=== PATIENT | female | born 1950 | race Caucasian/White ===

== ENCOUNTER 2025-01-28 10:28 | Inpatient (IN) | payer MEDICARE, MEDICAID ==
[~2025-01-28] VITALS: Ht 165.1 cm; Wt 63.0 kg
[2025-01-28] MEDS ORDERED: AIRSUPRA 90-810.7 GM INH (14:13)
[2025-01-28] MEDS ORDERED: ATORVASTATIN CA40 M1 PO (14:15)
[2025-01-28] MEDS ORDERED: BIOTENE DRY M1000 ML PO (14:17)
[2025-01-28] MEDS ORDERED: BRIMONIDINE TAR15 ML OPH (14:18)
[2025-01-28] MEDS ORDERED: LIBRIUM5 MG PO (14:19)
[2025-01-28] MEDS ORDERED: CLOPIDOGREL75 MG PO (14:20)
[2025-01-28] MEDS ORDERED: 24 HOUR ALLERG9.9 ML NAS (14:23)
[2025-01-28] MEDS ORDERED: NEURONTIN300 MG PO (14:24)
[2025-01-28] MEDS ORDERED: VISTARIL25 MG PO (14:25)
[2025-01-28] MEDS ORDERED: Ipratropium Brom3 ML INH (14:26)
[2025-01-28] MEDS ORDERED: LAMOTRIGINE ER100 MG PO (14:27)
[2025-01-28] MEDS ORDERED: LASIX40 MG PO (14:29)
[2025-01-28] MEDS ORDERED: LOSARTAN POTASS25 M1 PO (14:29)
[2025-01-28] MEDS ORDERED: METFORMIN HYDR500 MG PO (14:33)
[2025-01-28] MEDS ORDERED: NICODERM CQ1 EAC2 TD (14:35)
[2025-01-28] MEDS ORDERED: PERCOCET 5-3251 EACH PO (14:36)
[2025-01-28] MEDS ORDERED: PREPARATION H26 GM T (14:37)
[2025-01-28] MEDS ORDERED: TRAZODONE100 MG PO (14:38)
[2025-01-28] MEDS ORDERED: VENLAFAXINE225 MG PO (14:39)
[2025-01-28] MEDS ORDERED: ONDANSETRON HYDR4 MG PO (14:41)
[2025-01-28] MEDS ORDERED: MG-AL HYDROXIDE/SIMETICONE 30 ML UDC PO PRN (15:40)
[2025-01-28] MEDS ORDERED: Magnesium Hydroxide 30 ML UDC PO PRN (15:40)
[2025-01-28] MEDS ORDERED: ACETAMINOPHEN 325 MG TAB PO PRN (15:40)
[2025-01-28] MEDS ORDERED: Menthol/Zinc Oxide 4 GM THIN T PRN (15:50)
[2025-01-28 16:33] VITALS: BP 127/61
[2025-01-28] MEDS ORDERED: BUDESONIDE INH PRN (17:45)
[2025-01-28] MEDS ORDERED: ALBUTEROL INH PRN (17:45)
[2025-01-28] MEDS ORDERED: Albuterol Sulf/Ipratropium 3 ML VIAL NEB PRN (17:45)
[2025-01-28] MEDS ORDERED: BUDESONIDE 0.5 MG AMP NEB SCH (17:55)
[2025-01-28 20:00] VITALS: BP 113/61
[2025-01-28] MEDS ORDERED: ATORVASTATIN CALCIUM 40 MG TABLET PO SCH (21:00)
[2025-01-28] MEDS ORDERED: clonAZEPAM 1 MG TAB PO SCH (21:00)
[2025-01-28] MEDS ORDERED: LAMOTRIGINE 100 MG TAB PO SCH (21:00)
[2025-01-28] MEDS ORDERED: BRIMONIDINE 0.2% 15 ML BOTTLE OPH SCH (21:00)
[2025-01-28] MEDS ORDERED: GABAPENTIN 300 MG CAP PO SCH (21:00)
[2025-01-28] MEDS ORDERED: Aloe Vera/Carboxymethylcellu 44.3 ML CANS PO SCH (21:00)
[2025-01-28] MEDS ORDERED: DULoxetine Hydrochloride 30 MG CAP PO SCH (21:00)
[2025-01-29 06:47] LABS: BASO % 0.5 % (0.0-1.0); HEMATOCRIT 41.6 % (37.0-47.0); MEAN CELL VOLUME 87.8 fl (81.0-99.0); MEAN CORPUSCULAR HGB 28.1 pg (27.0-31.0); MEAN PLATELET VOLUME 9.5 fl (9.6-12.3); MONO # 0.6 10*3/uL (0.1-1.0); MONO % 7.2 % (3.0-9.0); NEUT # 5.2 10*3/uL (2.3-7.9); NEUT % 59.3 % (47.0-73.0); PLATELET COUNT AUTOMATED 230 10*3/uL (130-400); RED BLOOD COUNT 4.74 10*6/uL (4.10-5.10); RED CELL DISTRI WIDTH 13.6 % (0-14.5); WHITE BLOOD COUNT 8.8 10*3/uL (4.8-10.8)
[2025-01-29 07:19] LABS: ALKALINE PHOSPHATASE 65 U/L (46-116); BUN 14 mg/dl (9-23); CHLORIDE 102 mmol/L (98-107); CHOLESTEROL 104 mg/dL (<200); LDL CHOLESTEROL 26 mg/dL (9-159); POTASSIUM 3.8 mmol/L (3.4-5.1); SGPT/ALT 7 U/L (5-49); TOTAL PROTEIN 7.3 gm/dL (6.0-8.0); TRIGLYCERIDES 171 mg/dl (<150)
[2025-01-29 07:23] LABS: VALPROIC ACID (DEPAKENE) < 3.0 ug/ml (50-100)
[2025-01-29 07:29] LABS: VITAMIN D, 25-HYDROXY 27.1 ng/mL (30-100)
[2025-01-29] MEDS ORDERED: metFORMIN Hydrochloride 500 MG TAB PO SCH (08:00)
[2025-01-29 08:19] VITALS: BP 124/79
[2025-01-29] MEDS ORDERED: Venlafaxine Hydrochloride 75 MG CAP PO SCH (09:00)
[2025-01-29] MEDS ORDERED: Losartan Potassium 25 MG TAB PO SCH (09:00)
[2025-01-29] MEDS ORDERED: clonAZEPAM 0.5 MG TAB PO SCH (09:00)
[2025-01-29] MEDS ORDERED: FUROSEMIDE 40 MG TAB PO SCH (09:00)
[2025-01-29] MEDS ORDERED: Clopidogrel Hydrogen Sulfate 75 MG TAB PO SCH (09:00)
[2025-01-29] MEDS ORDERED: Nicotine 21 MG PATCH T SCH (10:38)
[2025-01-29 20:00] VITALS: BP 95/59
[2025-01-29] MEDS ORDERED: LAMOTRIGINE 25 MG TAB PO SCH (21:00)
[2025-01-30 08:23] VITALS: BP 131/76
[2025-01-30] MEDS ORDERED: Venlafaxine Hydrochloride 75 MG CAP PO SCH (09:00)
[2025-01-30] MEDS ORDERED: GABAPENTIN 300 MG CAP PO SCH (13:00)
[2025-01-30 20:00] VITALS: BP 114/77
[2025-01-30] MEDS ORDERED: DULoxetine Hydrochloride 60 MG CAP PO SCH (21:00)
[2025-01-30] MEDS ORDERED: LAMOTRIGINE 25 MG TAB PO SCH (21:00)
[2025-01-30] MEDS ORDERED: RAMELTEON 8 MG TAB PO SCH (21:00)
[2025-01-31 08:00] VITALS: BP 155/77
[2025-01-31] MEDS ORDERED: Venlafaxine Hydrochloride 75 MG CAP PO SCH (09:00)
[2025-01-31 19:30] LABS: BILIRUBIN Negative (Negative); BLOOD Negative (Negative); CLARITY Cloudy (Clear); COLOR Yellow (Yellow); GLUCOSE Negative (Negative); KETONE Trace (Negative); LEUKO ESTERASE Negative (Negative); NITRITE Negative (Negative); PH 5.5 (4.5-8.0); SPECIFIC GRAVITY 1.015 (1.001-1.030); UROBILINOGEN 0.2 E.U./dl (0.0-1.0)
[2025-01-31 19:50] LABS: BACTERIA 1+
[2025-01-31 20:00] VITALS: BP 124/64
[2025-02-01 08:00] VITALS: BP 113/63
[2025-02-01 20:00] VITALS: BP 108/67
[2025-02-01] MEDS ORDERED: hydrOXYzine pamoate 25 MG CAP PO PRN (20:05)
[2025-02-01] MEDS ORDERED: Ziprasidone Mesylate 20 MG VIAL IM PRN (20:05)
[2025-02-01] MEDS ORDERED: LORazepam 1 MG TAB PO PRN (20:05)
[2025-02-01] MEDS ORDERED: hydrOXYzine hydrochloride 50 MG/ML VIAL IM PRN (20:05)
[2025-02-02 08:23] VITALS: BP 149/90
[2025-02-02] MEDS ORDERED: Venlafaxine Hydrochloride 37.5 MG CAP PO SCH (09:00)
[2025-02-02] MEDS ORDERED: LAMOTRIGINE 25 MG TAB PO SCH (09:00)
[2025-02-02 20:00] VITALS: BP 114/57
[2025-02-03 06:37] LABS: BASO % 0.5 % (0.0-1.0); MEAN CELL VOLUME 87.6 fl (81.0-99.0); MEAN CORPUSCULAR HGB 27.9 pg (27.0-31.0); MEAN CORPUSCULAR HGB CONC 31.8 g/dl (33.0-37.0); MEAN PLATELET VOLUME 9.9 fl (9.6-12.3); MONO # 0.7 10*3/uL (0.1-1.0); MONO % 7.9 % (3.0-9.0); NEUT # 4.1 10*3/uL (2.3-7.9); NEUT % 48.8 % (47.0-73.0); PLATELET COUNT AUTOMATED 183 10*3/uL (130-400); RED BLOOD COUNT 4.45 10*6/uL (4.10-5.10); RED CELL DISTRI WIDTH 13.5 % (0-14.5); WHITE BLOOD COUNT 8.3 10*3/uL (4.8-10.8)
[2025-02-03 08:00] VITALS: BP 116/95
[2025-02-03 08:06] LABS: ALKALINE PHOSPHATASE 64 U/L (46-116); BUN 17 mg/dl (9-23); CHLORIDE 102 mmol/L (98-107); POTASSIUM 3.7 mmol/L (3.4-5.1); SGPT/ALT 10 U/L (5-49); TOTAL PROTEIN 6.7 gm/dL (6.0-8.0)
[2025-02-03] MEDS ORDERED: IBUPROFEN 600 MG TAB PO PRN (10:20)
[2025-02-03 20:00] VITALS: BP 118/57
[2025-02-04 08:00] VITALS: BP 147/81
[2025-02-04] MEDS ORDERED: DULoxetine Hydrochloride 30 MG CAP PO SCH (09:00)
[2025-02-04] MEDS ORDERED: CLONAZEPAM0.5 M2 PO (09:42)
[2025-02-04] MEDS ORDERED: NEURONTIN300 MG PO (09:42)
[2025-02-04] MEDS ORDERED: DULOXETINE HCL30 MG PO (09:42)
[2025-02-04] MEDS ORDERED: DULOXETINE HCL60 MG PO (09:42)
[2025-02-04] MEDS ORDERED: RAMELTEON8 MG PO (09:42)
== END 2025-02-04 16:25 | DRG 885 ==
LOC: 3N
PROVIDERS: Nurse Practitioner Women's Health; ADMIT Psychiatry & Neurology Psychiatry; ATTEND Psychiatry & Neurology Psychiatry
PROC: GZHZZZZ Group Psychotherapy (ICD-10-PCS; principal; 2025-01-29)
PROC: GZ51ZZZ Individual Psychotherapy, Behavioral (ICD-10-PCS; 2025-01-29)
DX: F33.2 Major depressive disorder, recurrent severe without psychotic features (principal); N18.32 Chronic kidney disease, stage 3b; E11.65 Type 2 diabetes mellitus with hyperglycemia; I50.32 Chronic diastolic (congestive) heart failure; I13.0 Hypertensive heart and chronic kidney disease with heart failure and stage 1 through stage 4 chronic kidney disease, or unspecified chronic kidney disease; E11.51 Type 2 diabetes mellitus with diabetic peripheral angiopathy without gangrene; F17.210 Nicotine dependence, cigarettes, uncomplicated; I25.10 Atherosclerotic heart disease of native coronary artery without angina pectoris; F41.1 Generalized anxiety disorder; F45.0 Somatization disorder; E78.2 Mixed hyperlipidemia; E11.22 Type 2 diabetes mellitus with diabetic chronic kidney disease; E11.40 Type 2 diabetes mellitus with diabetic neuropathy, unspecified; Z90.710 Acquired absence of both cervix and uterus; Z82.49 Family history of ischemic heart disease and other diseases of the circulatory system; Z82.3 Family history of stroke; Z88.8 Allergy status to other drugs, medicaments and biological substances; Z79.51 Long term (current) use of inhaled steroids; Z79.899 Other long term (current) drug therapy

== ENCOUNTER 2025-01-28 13:42 | Emergency (ER) | payer MEDICARE, MEDICAID ==
[~2025-01-28] VITALS: Ht 165.1 cm; Wt 65.8 kg
[2025-01-28 14:00] VITALS: BP 94/59
[2025-01-28] MEDS ORDERED: AIRSUPRA 90-810.7 GM INH (14:13)
[2025-01-28] MEDS ORDERED: ATORVASTATIN CA40 M1 PO (14:15)
[2025-01-28] MEDS ORDERED: BIOTENE DRY M1000 ML PO (14:17)
[2025-01-28] MEDS ORDERED: BRIMONIDINE TAR15 ML OPH (14:18)
[2025-01-28] MEDS ORDERED: LIBRIUM5 MG PO (14:19)
[2025-01-28] MEDS ORDERED: CLOPIDOGREL75 MG PO (14:20)
[2025-01-28] MEDS ORDERED: 24 HOUR ALLERG9.9 ML NAS (14:23)
[2025-01-28] MEDS ORDERED: NEURONTIN300 MG PO (14:24)
[2025-01-28] MEDS ORDERED: VISTARIL25 MG PO (14:25)
[2025-01-28] MEDS ORDERED: Ipratropium Brom3 ML INH (14:26)
[2025-01-28] MEDS ORDERED: LAMOTRIGINE ER100 MG PO (14:27)
[2025-01-28] MEDS ORDERED: LASIX40 MG PO (14:29)
[2025-01-28] MEDS ORDERED: LOSARTAN POTASS25 M1 PO (14:29)
[2025-01-28] MEDS ORDERED: METFORMIN HYDR500 MG PO (14:33)
[2025-01-28] MEDS ORDERED: NICODERM CQ1 EAC2 TD (14:35)
[2025-01-28] MEDS ORDERED: PERCOCET 5-3251 EACH PO (14:36)
[2025-01-28] MEDS ORDERED: PREPARATION H26 GM T (14:37)
[2025-01-28] MEDS ORDERED: TRAZODONE100 MG PO (14:38)
[2025-01-28] MEDS ORDERED: VENLAFAXINE225 MG PO (14:39)
[2025-01-28 14:40] LABS: BASO % 0.5 % (0.0-1.0); HEMATOCRIT 40.1 % (37.0-47.0); MEAN CELL VOLUME 90.3 fl (81.0-99.0); MEAN CORPUSCULAR HGB 28.4 pg (27.0-31.0); MEAN CORPUSCULAR HGB CONC 31.4 g/dl (33.0-37.0); MEAN PLATELET VOLUME 9.3 fl (9.6-12.3); MONO # 0.7 10*3/uL (0.1-1.0); MONO % 7.7 % (3.0-9.0); NEUT # 4.8 10*3/uL (2.3-7.9); NEUT % 54.9 % (47.0-73.0); PLATELET COUNT AUTOMATED 217 10*3/uL (130-400); RED BLOOD COUNT 4.44 10*6/uL (4.10-5.10); RED CELL DISTRI WIDTH 13.5 % (0-14.5); WHITE BLOOD COUNT 8.8 10*3/uL (4.8-10.8)
[2025-01-28] MEDS ORDERED: ONDANSETRON HYDR4 MG PO (14:41)
[2025-01-28 15:02] LABS: ALKALINE PHOSPHATASE 62 U/L (46-116); BUN 18 mg/dl (9-23); CHLORIDE 99 mmol/L (98-107); CPK 37 U/L (34-171); POTASSIUM 4.4 mmol/L (3.4-5.1); SGPT/ALT 8 U/L (5-49); TOTAL PROTEIN 7.3 gm/dL (6.0-8.0)
[2025-01-28 15:37] LABS: ETHYL ALCOHOL < 3.0 mg/dl (<3)
[2025-01-28 16:15] VITALS: BP 127/61
== END 2025-01-28 15:51 ==
LOC: ED 13:42 → 3N 15:57
PROVIDERS: Nurse Practitioner Family
DX: F33.9 Major depressive disorder, recurrent, unspecified (principal); N18.9 Chronic kidney disease, unspecified; Z79.899 Other long term (current) drug therapy